=== PATIENT | male | born 1945 | race Caucasian/White ===

== ENCOUNTER 2018-07-30 13:00 | Inpatient (IN) | payer OTHER ==
[~2018-07-30] VITALS: Ht 167.6 cm; Wt 73.5 kg
[~2018-07-30 13:00] MED LIST: ALTOPREV40 MG PO; AMBIEN10 MG PO; CILOSTAZOL100 MG PO; CIPRO750 MG PO; Colace 100MG PO; GLIPIZIDE5 MG PO; GLUCOPHAGE XR500 MG PO; LAMICTAL25 M1 PO; LANTUS100 U/ML SQ; NEURONTIN300 MG PO; NEURONTIN600 MG PO; NOVOLOG100 U/M1 SQ; ULTRACET PO; VASOTEC5 MG PO
[2018-08-06] MEDS ORDERED: DOCUSATE SODIU100 MG PO (07:52)
[2018-08-06] MEDS ORDERED: PERCOCET 5-3251 EACH PO (07:53)
[2018-08-06] MEDS ORDERED: CLONAZEPAM0.5 MG PO (07:53)
== END 2018-08-06 14:16 | disposition home or self-care (01) | DRG 454 ==
LOC: SURG 08-05 05:04 → O/R 08-05 05:04 → SURH 08-05 07:00 → SURG 08-05 10:40 → SURH 08-05 13:00 → SURG 08-05 19:20
PROVIDERS: ADMIT Orthopaedic Surgery Orthopaedic Surgery of the Spine
PROC: 0RG2071 Fusion of 2 or more Cervical Vertebral Joints with Autologous Tissue Substitute, Posterior Approach, Posterior Column, Open Approach (ICD-10-PCS; 2018-08-05)
PROC: 0RT30ZZ Resection of Cervical Vertebral Disc, Open Approach (ICD-10-PCS; 2018-08-05)
PROC: 07DS3ZZ Extraction of Vertebral Bone Marrow, Percutaneous Approach (ICD-10-PCS; 2018-08-05)
PROC: 0RG20A0 Fusion of 2 or more Cervical Vertebral Joints with Interbody Fusion Device, Anterior Approach, Anterior Column, Open Approach (ICD-10-PCS; principal; 2018-08-05 07:00)
DX: M47.12 Other spondylosis with myelopathy, cervical region (principal); M50.01 Cervical disc disorder with myelopathy, high cervical region